=== PATIENT | male | born 1985 | race Asian ===

== ENCOUNTER 2022-06-14 14:32 | Outpatient (CLI) | payer OTHER ==
[2022-06-14 15:19] VITALS: BP 100/60
--- NOTE | 2022-06-14 15:19 | SLEEP CARE CONSULTATION ---
Information from patient questionnaire entered by Ruth Mccabe. I have reviewed and concur with the information entered by Ruth Mccabe. This document represents the service I personally performed and the decisions made by me, Monique Markham ARNP. History of Present Illness Service Date and Time: 06/14/2022 1432 Reason for Visit: New patient Chief Complaint: reports: Unrefreshed sleep, Snoring, Excessive daytime sleepiness, Fatigue, Frequent awakenings at night Date of Onset: 5 MONTHS Usual bedtime: [id number] Time it takes to fall asleep: 1-1.5HRS Snores at night: Yes Observed to quit breathing while asleep: No Sleeps alone due to snoring: Yes Number of times waking at night: 2-3 Reasons for waking at night: reports: Choking, Other (UNKNOWN) Toss, Turn, or Twitch while sleeping: No Recalls having dreams: No Usually gets out of bed at: 0500 Feels refreshed in the morning: No Morning headache: Yes (5/7 days a week; RESOLVES AFTER PUT MY FEET IN WARM WATER ) Sleepy or fatigued during the day: Yes Ever fallen asleep while driving: Yes (drowsy driving, no accidents) Takes day naps: No Dreams during day naps: No Prior sleep studies: No Additional HPI information: I had the pleasure of seeing MY HOWARD today regarding the possibility of him having a sleep disorder. His current complaints are unrefreshed sleep, snoring, excessive daytime sleepiness, fatigue and frequent night awakenings. He states he usually wakes up about midnight and it is hard to go back to sleep because he has churning thoughts. He states that he has depression issues. His tells him that he snores at night. He wakes up tired and with a dry mouth. He will also wake up with headaches, too. He is tired/ sleepy during the day. He has to stand at work after lunch or he may fall asleep at his desk. His behavioral health provider prescribed him trazodone and it has helped him go to sleep and sleep better in last 2 weeks. He has been having nightmares too. 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 - Parasomnia Symptoms Ever been unable to move upon waking from sleep: No Walks in sleep: No Talks in sleep: No Ever acted out dreams in sleep: No Ever felt weak in the knees when startled or emotional: No Bothered by creepy, crawly, restless sensations in legs: No Problems with memory or concentration: Yes (both; feels he cannot focus, easy to forget things) Subjective Initial [place] Sleepiness Scale score: 12 (06/14/2022) Past Medical History Past Medical History: reports: Anxiety, Depression, Other (post nasal drip) Social History The patient's occupation is a AM. Patient is and lives in [place]. Have you smoked in the past 12 months: No Alcohol use: Yes Alcohol amount and frequency: 2-3 WEEKLY Caffeine use: Yes Caffeine amount and frequency: 1 DRINK MONTHLY Family History Family history of sleep disordered breathing: Yes Family Hx Sleep Apnea: Father: Snoring, Sleep apnea - Treated Allergies and Home Medications Known drug allergies: No Drug allergies reviewed: Yes Home medication list reviewed: Yes Allergy and home medication list: Medications: Trazodone Zyrtec Escitalopram MVT Diclofenac gel Review of Systems Weight loss over past 5 years: 10 Cardiovascular: denies: high blood pressure Respiratory: reports: shortness of breath Gastrointestinal: denies: heartburn Psychiatric: reports: anxiety, depression, mood disorder Ear/Nose/Throat: reports: dry mouth/throat. denies: tonsillectomy Musculoskeletal: reports: joint pain Immunologic: reports: sneezing Physical Exam Vital signs obtained and entered by: RUTH Tanner MA Blood Pressure: 100/60 (LEFT ARM) Cuff size: regular Heart Rate: 52 O2 Saturation: 98 Height: 5 ft 7 in Weight: 158 lb 11.2 oz Body Mass Index: 24.8 BMI Classification: Normal Neck circumference: 14.25 Mouth and throat: narrow oropharynx Soft palate: long Hard palate: normal Uvula: normal Uvula visualization: 25% Mallampati Class III Tongue: normal in size Tonsils: small Neck: normal w/o lymphadenopathy or thyromegaly Heart: regular rate and rhythm Lungs: clear bilaterally Impression and Plan 1. Suspected Obstructive Sleep Apnea-Hypopnea Syndrome, as suggested by a history of loud and irregular snoring, gasping or choking in sleep, morning headache, frequent awakening during the night, unrefreshed sleep, cognitive impairment, and excessive daytime sleepiness. Narrow oropharynx and obesity are common predisposing factors for obstructive sleep apnea-hypopnea syndrome. I recommend proceeding to polysomnography to confirm the diagnosis and to assess severity. If the patient has significant sleep disordered breathing, a manual CPAP titration study will also be performed to find the optimal treatment pressure. I informed the patient of what the sleep studies involve and after so me discussion, obtained agreement to proceed. The pathophysiology of obstructive sleep apnea-hypopnea syndrome was discussed with the patient and health risks of cardiovascular and cerebrovascular disease if not treated. Risks of drowsy driving discussed in detail and patient advised to avoid long distance driving and to bleach boiler puller at the first sign of drowsiness. Patient agreed to plan. * Schedule polysomnography * Avoid long distance driving or driving when feeling sleepy. * Avoid alcohol, sedative and muscle relaxant around bedtime. * Review instructions provided by trained office staff on how to prepare for the sleep study. * Return for follow-up after sleep study completed. Counseling Topics: Weight control Visit Type: In Office Time Spent with Patient (minutes): 31 Provider Statement: I spent 100% of the Face to Face Visit with the patient with greater than 50% spent counseling the patient and coordination of care.
== END 2022-06-14 14:33 | disposition home or self-care (01) ==
LOC: SC 14:32
PROVIDERS: ATTEND Nurse Practitioner Family
DX: R06.83 Snoring (principal); G47.8 Other sleep disorders; R51.9 Headache, unspecified; G47.10 Hypersomnia, unspecified; R53.83 Other fatigue; F32.A Depression, unspecified
CPT/HCPCS: 99203; 99212

== ENCOUNTER 2022-08-06 09:12 | Outpatient (CLI) | payer OTHER | END 2022-08-06 09:13 | disposition home or self-care (01) | LOC: SC 09:12 | PROVIDERS: ATTEND Nurse Practitioner Family | DX: R09.02 Hypoxemia (principal) | CPT/HCPCS: 95806 ==

== ENCOUNTER 2022-08-31 13:44 | Outpatient (CLI) | payer OTHER ==
--- NOTE | 2022-08-31 14:24 | Sleep Patient Instructions ---
Sleep Center Visit Summary - Patient Visit Information Reason for Visit: Sleep study followup - Patient Instructions Additional Instructions: Your sleep study today was negative for significant sleep disordered breathing. However, I am ordering a new sleep study that I want you to do in the sleep lab. We will follow up with you after the study. - Clinic Information Contact: [facility] [address] [place] [id number] [email or web address] T: [phone]
--- NOTE | 2022-08-31 14:29 | SLEEP CARE CONSULTATION ---
Information from patient questionnaire entered by Mara Mccabe. I have reviewed and concur with the information entered by Mara Mccabe. This document represents the service I personally performed and the decisions made by , Monique Markham ARNP. History of Present Illness Service Date and Time: 08/31/2022 1344 Initial [place] Sleepiness Scale score: 12 (06/14/2022) Current [place] Sleepiness Scale score: 15 (08/31/22) Additional HPI information: MY LEE returns for follow up and results of the recently performed home sleep study. The patient was informed of the following findings: No significant sleep disordered breathing with an average AHI of 4.1 and carrie oxygen saturation of 79%. Patient only slept supine. I explained the pathophysiology behind obstructive sleep apnea. Patient does not have sleep apnea and was advised how weight gain could increase the risk of developing sleep apnea in the future. Patient has mild snoring. Snoring can be reduced by weight loss. Weight loss is best achieved with diet consult. Patient instructed to contact PCP for referral. Snoring can also be treated with an oral appliance from a dentist. Advised to check insurance coverage. In addition, an ENT evaluation can be do to see if other treatment is indicated. Patient counseled not drink alcohol less than 4 hours before bedtime as it can increase snoring and apnea. Patient was cautioned about risks of drowsy driving until sleepiness symptoms resolve. Patient denies drowsy driving. Sleep Study - Results Type of Sleep Study: Polysomnography (COMPLETED 08/06/22) Prior sleep studies: No Polysomnography/Home Sleep Study results: Physician Impression: The quality of the study is good. The length of the study is adequate (> 240 minutes). Please also see the tabulated and graphic data. 1. No significant sleep disordered breathing, with an AHI of 4.1/hr and carrie SaO2 of 79%. During the study, the patient had 23 apneas (23 obstructive, 0 central, 0 mixed) and 5 hypopneas. The longest episode lasted 93.5 seconds. The patient only slept supine during this study (supine AHI was 4.3 and non-supine, 0.00). 2. Hypoxemia (ICD-10 R09.02), moderate, with the lowest oxygen saturation of 79 % and 14.8 minutes with SaO2 under 90%. Baseline oxygen saturation was normal (Average oxygen saturation was 97%). Allergies and Home Medications Known drug allergies: No Drug allergies reviewed: Yes Home medication list reviewed: Yes (no changes) Allergy and home medication list: Allergies No Known Drug Allergies Allergy (Verified 08/30/22 10:15) Review of Systems Review of systems same as previous: Yes (no changes) Physical Exam Vital signs obtained and entered by: MARA Tanner MA Blood Pressure: 100/60 (LEFT ARM) Cuff size: regular Heart Rate: 54 O2 Saturation: 99 Height: 5 ft 7 in Weight: 160 lb 9.6 oz Body Mass Index: 25.1 BMI Classification: Overweight Impression and Plan 1. Snoring but no significant sleep disordered breathing. Although his HST was not diagnostic for sleep apnea, his moderate hypoxemia was concerning with an AHI of 4.1. I am going to have him repeat the sleep study in the sleep lab to further evaluate for sleep disordered breathing. 2. Suspected Obstructive Sleep Apnea-Hypopnea Syndrome, as suggested by a history of loud and irregular snoring, observed cessation of breath while asleep, gasping or choking in sleep, morning headache, frequent awakening during the night, unrefreshed sleep, cognitive impairment, and excessive daytime sleepiness. I obtained agreement to proceed. The pathophysiology of obstructive sleep apnea-hypopnea syndrome was discussed with the patient and health risks of cardiovascular and cerebrovascular disease if not treated. Risks of drowsy driving discussed in detail and patient advised to avoid long distance driving and to pull worker at the first sign of drowsiness. Patient agreed to plan. 3. Hypoxemia, moderate, with a carrie oxygen saturation of 79% and 14.8 minutes spent under 90%. His baseline oxygen saturation was normal with an average oxygen saturation of 97%. * Schedule polysomnography +- manual CPAP titration study and return in 1-2 weeks after the study to discuss result and initiate therapy. * Avoid long distance driving or driving when feeling sleepy. * Avoid alcohol, sedative and muscle relaxant around bedtime. * Attempt to lose weight. * Review instructions provided by trained office staff on how to prepare for the sleep study. * Return for follow-up after sleep study completed. Counseling Topics: Weight loss health impact Visit Type: In Office Time Spent with Patient (minutes): 17 Provider Statement: I spent 100% of the Face to Face Visit with the patient with greater than 50% spent counseling the patient and coordination of care.
[2022-08-31 14:30] VITALS: BP 100/60
== END 2022-08-31 13:45 | disposition home or self-care (01) ==
LOC: SC 13:44
PROVIDERS: ATTEND Nurse Practitioner Family
DX: R06.83 Snoring (principal); R09.02 Hypoxemia; G47.8 Other sleep disorders; R51.9 Headache, unspecified; G47.10 Hypersomnia, unspecified; F32.A Depression, unspecified
CPT/HCPCS: 99212

== ENCOUNTER 2022-09-10 06:56 | Outpatient (CLI) | payer OTHER ==
--- NOTE | 2022-09-10 10:07 | MRI Report ---
PROCEDURE: KNEE WO - LT INDICATIONS: LEFT KNEE PAIN TECHNIQUE: Noncontrast sagittal PD fast spin echo and T2 fast spin echo with fat saturation, sagittal 3-D gradie nt sequence with fat saturation; coronal T1 spin echo and PD fast spin echo with fat saturation, and axial PD fast spin echo with fat saturation through the knee. COMPARISON: None FINDINGS: Image quality: Good Menisci Medial: There is fraying of the posterior horn of the medial meniscus at the meniscocapsular junction . No significant discrete tear elsewhere. Lateral: There is a vertical free edge tear of the body of the lateral meniscus (4/28), with complex tear extending to the anterior horn, which has a diminutive appearance. Cruciate ligaments: Intact Medial structures MCL: Intact Pes anserine tendons: Intact Semimembranosus: Intact Lateral structures LCL: Intact Biceps femoris: Intact IT band: Intact Popliteus tendon: Intact Anterior structures Extensor mechanism: Intact Fat pads: Mild edema in Hoffa's fat pad and quadriceps fat pad. Medial retinaculum: Intact. Trochlea: Unremarkable morphology. Bone and joint Bones: No fracture, dislocation, or suspicious edema Cartilage: Full-thickness fissuring and cartilage loss at the median ridge of the patella. Mild chond romalacia is seen elsewhere at the patellofemoral joint. Mild cartilage thinning and chondromalacia a lso seen in the medial and lateral compartments. Joint space: Mild joint effusion and synovitis. Andrade's cyst: None Soft tissues: No significant vascular or other soft tissue pathology. IMPRESSION: Cruciate ligaments are intact. There is a vertical free edge tear of the body of the lateral meniscus (4/20), with complex tear extending to a diminutive anterior horn. Fraying and edema at the meniscoc apsular junction of the medial meniscal posterior horn. Full-thickness fissuring cartilage loss at the patellar median ridge. Mild chondromalacia elsewhere. Mild joint effusion and synovitis, as well as edema in Hoffa's fat pad and quadriceps fat pad. Reviewed by: Nicola Velasco MD on 09/10/2022 10:05 AM PDT Approved by: Nicola Velasco MD on 09/10/2022 10:05 AM PDT Station ID: [id number]
== END 2022-09-10 06:57 | disposition home or self-care (01) ==
LOC: DI 06:56
PROVIDERS: ATTEND Physician Assistant
DX: S83.272A Complex tear of lateral meniscus, current injury, left knee, initial encounter (principal); M22.42 Chondromalacia patellae, left knee; M25.462 Effusion, left knee; M65.9 Synovitis and tenosynovitis, unspecified